=== PATIENT | female | born 1965 | race Caucasian/White ===

== ENCOUNTER 2025-01-18 13:23 | Emergency (ER) | payer SELFPAY ==
[2025-01-18 13:27] VITALS: BP 124/71
--- NOTE | 2025-01-18 14:13 | ED.GENMED ---
History of Present Illness
General
Chief Complaint: Fall
Source: patient
Exam Limitations: none
Time Seen by Provider: 01/18/25 14:03
History of Present Illness
History of Present Illness:
See MDM
Past History
Past History
ED Past Medical History: Asthma
ED Past Surgical History: None
Social History
Tobacco: Non-smoker
Alcohol: None
Phy Exam
Physical Exam
Physical Exam:
See MDM
Course
Orders/Labs/Results
Orders:
Orders
01/18/25 14:07
CT Head W/o Iv Contrast Urgent
Comment:
Reason For Exam: fall, headache
Cyclobenzaprine HCl [Flexeril] 10 mg PO NOW STA
Ibuprofen [Motrin] 600 mg PO NOW STA
Ipratropium/Albuterol Sulfate [Duoneb] 3 ml INH R NOW ONE
CR Chest - 2 Views Urgent
Comment:
Reason For Exam: SOB
Lumbar Spine, 2 or 3 View [CR Lumbar Spine 2 Or 3 Views] Urgent
Comment:
Reason For Exam: fall, low back pain
01/18/25 14:12
Dexamethasone Pf [Decadron] 10 mg PO NOW STA
01/18/25 16:18
Lidocaine [Lidocaine 4% Patch] 1 patch TOPICAL ONCE ONE
Apply Lidocaine patch(s) to:: low back
Vital Signs
Initial and Last Documented VS:
Initial Vital Signs
Temp Pulse Resp BP Pulse Ox
98.2 F 78 16 124/71 98
01/18/25 13:27 01/18/25 13:27 01/18/25 13:27 01/18/25 13:27 01/18/25 13:27
Last Documented Vital Signs
Temp Pulse Resp BP Pulse Ox
98.2 F 68 16 119/68 96
01/18/25 13:27 01/18/25 15:30 01/18/25 15:30 01/18/25 15:28 01/18/25 15:30
MDM/Problems Addressed
Differential Diagnosis Includes:
Note:
CHIEF COMPLAINT(S)
Fall down stairs, potential asthma exacerbation.
HISTORY OF PRESENT ILLNESS
The patient is a 59-year-old female who presented after a fall down multiple stairs. It is noted that she hit her head during the fall and is experiencing back pain. The exact location of the pain is described as being centralized in one specific
area of her lower back. There was discussion of her asthma possibly acting up, indicating some respiratory issues. She has a headache and is nauseous. Respiratory assessment noted the patient was asked to take a few deep breaths and there was no
significant respiratory distress at that time. She has used an inhaler prior to the evaluation today.
PAST MEDICAL AND SURGICAL HISTORY
Asthma, Lung issues.
PHYSICAL EXAM
General: Alert, no acute distress.
Skin: Warm, dry.
Head: Tenderness noted in the head region.
Neck: Supple, trachea midline.
Eye Ears, Nose, Mouth, and Throat: Oral mucosa moist.
Cardiovascular: Normal peripheral perfusion, No edema.
Respiratory: Respirations are non-labored on exam with inhaler, past use stated.
Gastrointestinal: Abdomen nondistended.
Back: Localized area of tenderness noted along lower paralumbar musculature
Musculoskeletal: Range of motion is limited by pain in the back.
Neurological: No focal neurological deficit observed.
Psychiatric: Cooperative, appropriate mood & affect.
PROBLEM LIST
Acute: Fall with potential head injury, back pain
Chronic: Asthma
PLAN
1. Imaging: Obtain a CT scan of the head and X-rays of the back and chest to assess for potential injury.
2. Asthma Management: Provide a breathing treatment and administer steroids to help control the asthma symptoms.
3. Pain Management: Administer pain medication to alleviate back pain resulting from the fall.
4. Monitor: Observe for any neurological changes or escalation of respiratory symptoms.
DIFFERENTIAL DIAGNOSIS
The Differential Diagnosis includes, in no particular order and is not limited to:
1. Head Injury
2. Vertebral Fracture
3. Musculoskeletal Injury
4. Spinal Cord Injury
5. Pulmonary Contusion
6. Asthma Exacerbation
7. Pneumothorax
8. Rib Fracture
9. Pneumonia
10. Chronic Obstructive Pulmonary Disease (COPD) exacerbation.
SUMMARY OF ENCOUNTER
The patient, a 59-year-old female, presented to the emergency department after falling down multiple stairs, during which she hit her head and experienced back pain. Additionally, she reported potential exacerbation of her asthma. In the emergency
department, a CT scan of the head, a chest X-ray, and a lumbar X-ray were performed, all of which returned negative for acute pathology. The patient was assessed for respiratory distress due to her asthma and given a breathing treatment along with
steroids to manage symptoms. Pain management for her back pain was also addressed.
DISPOSITION
Discharge
ASSESSMENT
The patient is diagnosed with low back pain following a fall and mild asthma exacerbation.
PLAN
1. Discharge the patient with instructions for follow-up care.
2. Consider an outpatient MRI of the lumbar spine if symptoms persist, to be arranged by the primary care provider.
3. Encourage the patient to use prescribed muscle relaxants and analgesics as needed for pain management.
4. Provide asthma management education and a plan for controlling symptoms.
PATIENT EDUCATION AND COUNSELING
The patient was educated on signs of worsening symptoms, especially neurological changes from the fall or escalation in respiratory difficulty from asthma. Instructions were provided on the use of prescribed medications for back pain and asthma.
FOLLOW-UP INSTRUCTIONS
The patient is advised to follow up with her primary care physician. An MRI may be considered by her primary care doctor if symptoms persist.
MEDICATION RECONCILIATION
The patient discussed the potential use of analgesics and muscle relaxants for pain management. No specific medications were explicitly administered during the emergency department visit.
MEDICAL DECISION MAKING
-Complexity of Data Reviewed: Chronic conditions affecting care [Asthma, Lung issues] Differential Diagnosis included head injury, vertebral fracture, musculoskeletal injury, spinal cord injury, pulmonary contusion, asthma exacerbation,
pneumothorax, rib fracture, pneumonia, COPD exacerbation.
-Data:
Category 1
The following testing was considered, but ultimately not selected after discussion with patient/family: Outpatient MRI of the lumbar spine to be considered by the primary care provider if symptoms persist.
Category 2
My independent interpretation of CT head was negative; chest x-ray and lumbar x-ray were negative for acute pathology.
-Risk:
Prescription medication was considered, involving muscle relaxants and pain management for the patients lower back pain.
Consideration of Admission/Observation: Escalation of care including admission/observation was considered given the complexity and risk of the patients presenting complaint, exam findings, and/or their underlying comorbidities. However, ultimately I
feel the patient is safe for outpatient management with close follow-up. Reasoning: Work-up reassuring, does not reveal any acute life/organ-threatening processes, patients symptoms well controlled upon reevaluation, reexamination is reassuring,
vitals are stable, patient agreeable with discharge, reliable for follow-up.
DIAGNOSIS
- Low back pain following a fall (ICD-10: M54.5)
- Mild asthma exacerbation (ICD-10: J45.901)
*Pulse Oximetry
SaO2: 98
Oxygen Mode of Delivery: Room air
Patient hypoxic: no
*Critical Care Note
Total Time (30-74mins, 75-104mins- exclusive of procedures): Not Applicable
ED Attending Note
-
Portions of this chart may have been created with voice recognition software.� Occasional wrong word or��sound alike� substitutions may have occurred due to the inherent limitations of voice recognition software.
Discharge Plan
Departure
Patient Disposition: Home (Routine Discharge)
Date of Disposition: 01/18/25
Time of Disposition: 16:20
Patient with high blood pressure during this ER visit?: No
Discharge Problem:
Low back pain
Instructions: Back Pain
Prescriptions:
New
diclofenac sodium 75 mg tablet,delayed release (DR/EC)
75 mg PO BID PRN (Reason: Pain) Qty: 20 0RF
metaxalone 800 mg tablet
800 mg PO TID PRN (Reason: muscle pain) Qty: 14 0RF
Referrals:
NONE,* [Family Provider, Internal Medicine]
Activity Restrictions/Additional Instructions:
Please return for any worsening symptoms.
You may return at any time if you have further concerns.
Please follow up with your doctor at the first available appointment, preferably this week.
Thank you for choosing [facility].
Interventions
Interventions:
*Risk Screen - Suicide Last Done: 01/18/25 13:27
*General Assessment Last Done: 01/18/25 14:00
*Neglect/Abuse Screening Last Done: 01/18/25 13:27
*ED COVID-19 Vaccine History Last Done: 01/18/25 14:00
ED-Musculoskeletal Assessment Last Done: 01/18/25 14:00
ED- Neurological Assessment Last Done: 01/18/25 14:00
ED-Skin Assessment Last Done: 01/18/25 14:00
Discharge Date and Time
Print Language: UGANDAN
[2025-01-18] MEDS: MOTRIN 600 MG PO (14:18)
[2025-01-18] MEDS: FLEXERIL 10 MG PO (14:18)
[2025-01-18] MEDS: DUONEB 3 ML INH (14:18)
[2025-01-18] MEDS: DECADRON 10 MG PO (14:18)
[2025-01-18 15:28] VITALS: BP 119/68
[2025-01-18 16:00] VITALS: BP 103/66
[2025-01-18 17:00] VITALS: BP 105/67
== END 2025-01-18 17:48 | disposition home or self-care (01) ==
LOC: EMR 13:23
PROVIDERS: EMERGENCY PHYSICIAN Student in an Organized Health Care Education/Training Program
DX: M54.50 Low back pain, unspecified (principal); R51.9 Headache, unspecified; W10.9XXA Fall (on) (from) unspecified stairs and steps, initial encounter; J45.901 Unspecified asthma with (acute) exacerbation
CPT/HCPCS: 94640; 99284; 70450; 71046; 72100